=== PATIENT | female | born 1980 | race African-American/Black ===

== ENCOUNTER 2019-09-15 16:39 | Observation (INO) | payer SELFPAY ==
--- NOTE | ~2019-09-15 | CT_ITS ---
EXAMINATION: CT abdomen pelvis wo con DATE: 09/15/2019 19:03 INDICATION: Nausea and vomiting. TECHNIQUE: Computed tomography (CT) of the abdomen and pelvis was performed without intravenous contr ast. Automated exposure control and iterative reconstruction technique were employed. The dose-length product was 306.54 mGy-cm. COMPARISON: None. FINDINGS: The visualized portions of the lung bases demonstrate minimal atelectasis. No pleural effus ion. The heart size is normal. No pericardial effusion. The liver, gallbladder, spleen, pancreas, adr enal glands, and kidneys are normal. There is no urolithiasis. There are no dilated loops of bowel. T he appendix is normal. There is an umbilical hernia containing fat. The uterus is enlarged. There are 3.6 cm and 5.1 cm intramural uterine fibroids. There is a small volume of pelvic ascites, likely phy siologic. There is a small right inguinal hernia containing fat. There are no pathologically enlarged lymph nodes. There is thoracolumbar dextrocurvature. IMPRESSION: 1. Uterine fibroids. 2. Umbilical hernia containing fat. Small right inguinal hernia containing fat. Reviewed, dictated and finalized at location A.
[2019-09-15 16:43] VITALS: BP 118/60; PULSE 89; RESP 18; TEMP 37.7; O2SAT 100
--- NOTE | 2019-09-15 16:58 | ED.ABDPAIN ---
HPI - Abdominal Pain General Chief Complaint: Nausea/Vomiting/Diarrhea <Kishor Whipple PA-C - Last Filed: 09/15/19 20:33> Stated Complaint: nausea and vomiting <Kishor Whipple PA-C - Last Filed: 09/15/19 20:33> Time Seen by Provider: 09/15/19 16:41 <Kishor Whipple PA-C - Last Filed: 09/15/19 20:33> Source: patient <KAREN Vasquez Last Filed: 09/15/19 20:33> Mode of arrival: ambulatory <KAREN Vasquez Last Filed: 09/15/19 20:33> Limitations: no limitations <Kishor Whipple PA-C - Last Filed: 09/15/19 20:33> History of Present Illness HPI narrative: Patient is a 39-year-old female who presents to emergency department for evaluation of periumbilical abdominal pain is a sharp intermittent stabbing pain that has been present now for the last couple of days patient denies any fever vomiting diarrhea does note urinary frequency and urgency denies vaginal complaints or diarrhea or constipation <Kishor Whipple PA-C - Last Filed: 09/15/19 20:33> Related Data Allergies/Adverse Reactions: Allergies Allergy/AdvReac Type Severity Reaction Status Date / Time No Known Allergies Allergy Verified 09/15/19 17:59 <Kishor Whipple PA-C - Last Filed: 09/15/19 20:33> Review of Systems Review of Systems: All systems reviewed & are unremarkable except as noted in HPI and below <Kishor Whipple PA-C - Last Filed: 09/15/19 20:33> PMFSH Social History Social History: Social History Gender identity (if verbalized by the patient): Female <KAREN Vasquez Last Filed: 09/15/19 20:33> Exam Narrative: Exam Narrative: GENERAL: Well-appearing, well-nourished, and in no acute distress. HEAD: Normocephalic, atraumatic. EYES: PERRLA and EOMI. ENT: Nares clear, no rhinorrhea or epistaxis. Mucous membranes moist. CHEST: Clear to auscultation. No respiratory distress. No wheezes rales or rhonchi HEART: Regular rate and rhythm. No murmur heard. Normal peripheral pulses. ABDOMEN: Soft, periumbilical tenderness remainder of abdomen nontender no rebound or guarding, nondistended. Guaiac negative EXTREMITIES: Normal range of motion. No edema. SKIN: Warm, dry, no rash. NEURO: No focal deficits. Alert and oriented x3. PSYCH: Normal mood and affect. <Kishor Whipple PA-C - Last Filed: 09/15/19 20:33> Course Course Emergency Course: Patient in the room at this time in no distress aware of case findings treatment plan and diagnosis agreeing to stay in hospital aware of discussions with GI consult and hospitalist service <Kishor Whipple PA-C - Last Filed: 09/15/19 20:33> [employer]/PA Physician Supervision For this patient encounter, I reviewed the [employer] or PA documentation, treatment plan, and medical decision making; and I had [id number] time with this patient. <Giovanna Villalta MD - Last Filed: 09/15/19 19:46> Consultations Consultation #1: Discussed case with hospitalist and route relief driver who will accept the patient in consult on the patient in hospital <KAREN Vasquez Last Filed: 09/15/19 20:33> Date: 09/15/19 <KAREN Vasquez Last Filed: 09/15/19 20:33> Time: 20:31 <KAREN Vasquez Last Filed: 09/15/19 20:33> Vital Signs Vital signs: Vital Signs Temperature 99.9 F H 09/15/19 16:43 Pulse Rate 89 09/15/19 16:43 Respiratory Rate 18 09/15/19 16:43 Blood Pressure 118/60 09/15/19 16:43 Pulse Oximetry 100 09/15/19 16:43 Temperature 99.9 F H 09/15/19 16:43 Pulse Rate 76 09/15/19 19:00 Respiratory Rate 18 09/15/19 19:00 Blood Pressure 130/80 09/15/19 19:00 Pulse Oximetry 99 09/15/19 19:00 <KAREN Vasquez Last Filed: 09/15/19 20:33> Vital Signs Temperature 99.9 F H 09/15/19 16:43 Pulse Rate 89 09/15/19 16:43 Respiratory Rate 18 09/15/19 16:43 Blood Pressure 118/60 06
[2019-09-15] MEDS: SODIUM CHLORIDE 0.9% IV 1,000 ML 999 ML IV CONT ×2 (17:02→18:58)
[2019-09-15 17:03] LABS: Basophils Percent Auto 0.4 % (0.2-1.2); Eosinophils Absolute Auto 0.1 K/mm3 (0-0.3); Eosinophils Percent Auto 1.9 % (0-4.4); Hematocrit 24.9 % (37.0-47.0); Hemoglobin 7.3 g/dL (12.0-15.0); Immature Granulocyte Absolute 0.01 K/mm3 (0.00-0.031); Immature Granulocyte Percent A 0.2 % (0-0.5); Lymphocytes Absolute Auto 1.69 K/mm3 (0.9-3.2); Lymphocytes Percent Auto 31.8 % (18.3-44.2); Mean Corpuscular HGB Conc 29.3 g/dl (32-36); Mean Corpuscular Hemoglobin 19.9 pg (26-34); Mean Platelet Volume 9.7 fl (7.4-10.4); Monocytes Absolute Auto 0.3 K/mm3 (0.1-0.6); Monocytes Percent Auto 6.4 % (2.6-8.5); Neutrophils Absolute Auto 3.2 K/mm3 (1.3-6.7); Neutrophils Percent Auto 59.3 % (45.5-73.1); Platelet Count Result 291 k/mm3 (150-375); Red Blood Count 3.66 M/mm3 (4.2-5.4); Red Cell Distribution Width 19.9 % (11.5-14.5); White Blood Count 5.3 K/mm3 (4.5-10.0)
--- NOTE | 2019-09-15 17:04 | PC.NURSE ---
Pt unable to give urine sample at this time.
--- NOTE | 2019-09-15 17:05 | PC.NURSE ---
[facility] currently out of Pepcid. Called pharmacy and spoke with Jane. She states that she will have her tech come and fill Pepcid.
[2019-09-15 17:20] LABS: Hypochromasia 1+ (NORMAL); Platelet Estimate Adequate (Adequate)
[2019-09-15 17:21] LABS: Ovalocytes 1+ (NORMAL); Poikilocytosis 1+ (NORMAL); Target Cells 1+ (NORMAL)
[2019-09-15] MEDS: FAMOTIDINE 20 MG/2 ML VIAL IV PUSH ×2 (17:25→21:56)
[2019-09-15 17:38] LABS: Alanine Aminotransferase 14 U/L (4-35); Albumin Level 4.2 g/dL (3.5-5.1); Alkaline Phosphatase 67 U/L (38-126); Aspartate Amino Transferase 26 U/L (14-36); Bilirubin,Total 0.3 mg/dL (0.2-1.3); Blood Urea Nitrogen 7 mg/dL (7-17); Calcium 9.2 mg/dL (8.4-10.2); Carbon Dioxide 22 mmol/L (22-30); Chloride 109 mmol/L (98-107); Estimated CRCL calculation 62 ml/min; Estimated Glomerular Filt Rate > 60; Glucose 98 mg/dL (65-105); Lipase 85 U/L (23-300); Potassium 3.8 mmol/L (3.4-5.0); Sodium 137 mmol/L (137-145)
[2019-09-15] MEDS: PANTOPRAZOLE SODIUM IV 40 MG VIAL IV PUSH ×2 (18:08→21:56)
[2019-09-15 18:27] VITALS: BP 96/51; PULSE 60
[2019-09-15 18:28] VITALS: BP 105/57; PULSE 59
[2019-09-15 18:30] VITALS: BP 95/60; PULSE 63
[2019-09-15 18:46] LABS: Add Urine Microscopic? YES; Appearance Urine Cloudy (Clear); Bacteria Urine Trace /hpf; Bilirubin Urine Negative (Negative); Blood Urine Negative (Negative); Color Urine Yellow (Yellow); Glucose Urine UA Negative (Negative); Ketones Urine Negative (Negative); Leukocyte Esterase Ur Trace LEU/UL (Negative); Mucus Urine Rare /lpf; Nitrate Urine Negative (Negative); Protein Urine Negative (Negative); RBC Urine 0-2 /hpf (0-2); Specific Grav Ur 1.017 (1.001-1.035); Squamous Epithelial Cell Urine Many /hpf (Few); Urobilinogen Urine Negative mg/dL (<2.0)
[2019-09-15 19:00] VITALS: BP 130/80; PULSE 76; RESP 18; O2SAT 99
[2019-09-15 20:38] LABS: Reticulocyte Hemoglobin Conten 19.8 pg (28.2-35.7); Reticulocyte Percent 1.06 % (0.7-4.3); Reticulocytes Absolute 0.04 B/L (32.2-175.7)
[2019-09-15 20:54] LABS: Iron 28 ug/dL (37-170)
[2019-09-15 21:04] LABS: Percent Iron Saturation 6 % (20-50); Transferrin 383 mg/dL (206-381)
[2019-09-15 21:30] LABS: Ferritin 5.11 ng/mL (6.24-137)
--- NOTE | 2019-09-15 21:31 | ADMGEN ---
This patient, Juana Gomez, was admitted to 3 [facility] Surg Room 307-01. Patient/family oriented to hospital policies and general routines including ID bracelet, bed and alarms, visiting hours, pain management, procedures, bathroom and other care routines, personal items, smoking policy, room service/diet, and visiting hours. Valuables list has been completed. Information on how to activate the Rapid Response Team has been discussed. Patient/Family are encouraged to report perceived risks to care and to ask questions if they do not understand what they are told or what they should do.
[2019-09-15 21:36] VITALS: BP 102/62; PULSE 71; RESP 16; TEMP 36.8; O2SAT 100; BMI 25.0
[2019-09-15 21:42] LABS: Hematocrit 22.2 % (37.0-47.0)
[2019-09-15 21:45] LABS: Hemoglobin 6.3 g/dL (12.0-15.0)
[2019-09-15] MEDS: LACTATED RINGERS 1,000 ML 125 ML IV CONT (21:56)
[2019-09-15 22:02] LABS: Folic Acid 6.7 ng/mL (2.76->20)
[2019-09-15] MEDS: IRON SUCROSE COMPLEX 200 MG in SODIUM CHLORIDE 0.9% IV 50 ML 120 MG IVPB (22:32)
[2019-09-16] VITALS (11 sets, daily range): BP systolic 107–146; BP diastolic 64–86; PULSE 47–73; RESP 15–22; TEMP 36.6–37.1; O2SAT 100
[2019-09-16 03:43] LABS: Basophils Percent Auto 0.5 % (0.2-1.2); Eosinophils Absolute Auto 0.1 K/mm3 (0-0.3); Eosinophils Percent Auto 2.1 % (0-4.4); Hematocrit 25.9 % (37.0-47.0); Hemoglobin 7.6 g/dL (12.0-15.0); Immature Granulocyte Absolute 0.01 K/mm3 (0.00-0.031); Immature Granulocyte Percent A 0.3 % (0-0.5); Lymphocytes Absolute Auto 1.85 K/mm3 (0.9-3.2); Lymphocytes Percent Auto 48.1 % (18.3-44.2); Mean Corpuscular HGB Conc 29.3 g/dl (32-36); Mean Corpuscular Hemoglobin 20.9 pg (26-34); Mean Corpuscular Volume 71.2 fl (80-100); Mean Platelet Volume 9.1 fl (7.4-10.4); Monocytes Absolute Auto 0.2 K/mm3 (0.1-0.6); Monocytes Percent Auto 5.7 % (2.6-8.5); Neutrophils Absolute Auto 1.7 K/mm3 (1.3-6.7); Neutrophils Percent Auto 43.3 % (45.5-73.1); Platelet Count Result 189 k/mm3 (150-375); Red Blood Count 3.64 M/mm3 (4.2-5.4); Red Cell Distribution Width 21.8 % (11.5-14.5); White Blood Count 3.9 K/mm3 (4.5-10.0)
[2019-09-16 03:48] LABS: Blood Urea Nitrogen 8 mg/dL (7-17); Calcium 8.1 mg/dL (8.4-10.2); Carbon Dioxide 19 mmol/L (22-30); Chloride 114 mmol/L (98-107); Estimated CRCL calculation 73 ml/min; Estimated Glomerular Filt Rate > 60; Glucose 83 mg/dL (65-105); Potassium 3.7 mmol/L (3.4-5.0); Sodium 137 mmol/L (137-145)
[2019-09-16 04:26] LABS: Microcytosis 2+ (NORMAL); Platelet Estimate Adequate (Adequate)
[2019-09-16 04:27] LABS: Hypochromasia 1+ (NORMAL); Ovalocytes 1+ (NORMAL)
--- NOTE | 2019-09-16 05:11 | PM.IMHP ---
H&P: HPI History of Present Illness Chief complaint: Anemia, abdominal pain Narrative: Date and time of patient contact: 09/16/2019 at 3:45 a.m. Juana Gomez is a 39 year old female with a past medical history of bipolar disorder, anxiety, menorrhagia and prior gastric ulcer (around 2002) who presented to the ER due to nausea, vomiting, epigastric pain and anxiety. The patient reports that she has had a few days of epigastric left upper abdominal pain that is intermittent. When the pain occurs of last for 20 at 30 minutes. Pain is stabbing in nature and severe in intensity. She does not notice any correlation of the pain with food. She has had intermittent vomiting that is clear fluid. She has also had decreased appetite for the last couple of days. She also has a history of menorrhagia. She states that she has severe cramping with her menstrual cycle. Her menstrual cycles usually last between 5-7 days and have significant clots. She often times has to wear both a pad and a tampon or a menstrual cup and a pad and has to change her products frequently. She has had ovarian cyst in the past but denies a history of uterine fibroids. Imaging in the ER did demonstrate uterine fibroids measuring 3.6 cm and 5.1 cm. She also had a large uterus. She does report urinary urgency and frequency with frequent bladder leakage. She reports that when she changes her menstrual cup she does feel a bulge pushing on her vagina. She had 4 children via vaginal . She has not seen her psychology instructor regarding her urinary symptoms because she does not currently have insurance. She has had a long history of iron deficiency anemia and has been on oral supplementation in the past. She does not give a clear reason as to why she quit taking oral supplementation. She reports that she does not eat much red meat. Sounds like her diet is deficient in iron. she denies having taken any significant NSAID therapy. She denies any hematochezia or melena. She has had several days of looser stools but there brown in color. She denies any recent ill contacts, cough, congestion, fevers or chills. She reports a long history of anxiety. She states that she does not get lightheaded with position changes. She usually gets lightheaded when she starts tremoring and shaking with her anxiety attacks. She is quite concerned about intermittent paresthesias in her hands with sleeping and with other daily activities. She also has frequent cramping in her hands that is usually relieved with moving her hands. She is concerned that she has had a new skin pigment changes that she thinks are rash on her right side of her neck and on her right cheek. She reports that the skin color changes developed prior to wearing facemask during the COVID-19 epidemic. Review of Systems Review of Systems: Narrative: 12 systems were reviewed with pertinent positives and negatives per HPI. Except as documented in the HPI, all other systems were reviewed and are negative. [facility] Past Medical History Medical History (Updated 09/16/19 @ 05:43 by Astrid White DO) Anxiety Asthma Bipolar disorder Depression Iron deficiency anemia PTSD (post-traumatic stress disorder) Ulcer 2003 Surgical History Surgical History (Updated 09/16/19 @ 05:16 by Astrid White DO) History of tubal ligation 2005 Family History Family History (Updated 09/16/19 @ 05:17 by Astrid White DO) Mother Chronic obstructive pulmonary disease Daughter Diabetes mellitus Asthma Social History Social History (Updated 09/16/19 @ 05:19 by Astrid White DO) Smoking packs per day: 0.25 Smoking cigarettes per day: 5.0 Years smoked: 15 Smoking pack-years: 3.75 Smoking status: Current every day smoker Alcohol intake: current Alcohol use details: She drinks a glass of wine about once a month. Substance use: current Substance use type: marijuana Other substance usage details: She smo
[2019-09-16 06:38] LABS: IFOB Positive Control Positive; Immunochemical Fecal Occult Bl Negative (N)
--- NOTE | 2019-09-16 08:21 | WPDGICN ---
Assessment and Plan Assessment and plan (1) Iron deficiency anemia: Code(s): D50.9 - Iron deficiency anemia, unspecified Status: Acute Assessment and Plan: Iron deficiency anemia noted by laboratory testing. Rather profound anemia identified. Given her abdominal pain plan is to pursue EGD. A colonoscopy should also be performed after preparation. This can be performed as an outpatient. Patient does give a heavy history of heavy menstrual cycles. This likely contributes to ongoing iron deficiency. Agree with iron replacement. Stool is currently Hemoccult negative. Which supports menstrual blood loss contributing to her anemia. (2) Bipolar disorder: Code(s): F31.9 - Bipolar disorder, unspecified Status: Acute (3) Anxiety: Code(s): F41.9 - Anxiety disorder, unspecified Status: Acute (4) Abdominal pain: Qualifiers: Abdominal location: epigastric Qualified Code(s): R10.13 - Epigastric pain Code(s): R10.9 - Unspecified abdominal pain Status: Acute Assessment and Plan: Because of abdominal pain an EGD will be performed. Patient does have a distant history of gastric ulceration. With her profound microcytic anemia EGD will be performed today and colonoscopy advised subsequently when she can be prepared. Potentially this could be done as an outpatient. GI Consult Note Consult date/time: 09/16/19 08:21 HPI: Juana Gomez is a 39 year old female CC in evaluation at the request of the emergency room. Patient presented the emergency room because of epigastric pain nausea vomiting and anxiety. She has a history of recurrent abdominal pain that occurs intermittently. She denies any obvious signs of GI blood loss. She does have significant heavy menses. in the emergency room she was identified as having profound microcytic anemia. Patient reports having been anemic for quite some time. Previously was prescribed iron. She is stop this medication at some point. She denies any other source of blood loss. No obvious blood in her stools. No blood in her urine. No obvious bruising. She reports many years ago having had a gastric ulcer. Review of Systems Review of Systems: All systems reviewed & are unremarkable except as noted in HPI and below PMFSH Past Medical History Medical History Anxiety Asthma Bipolar disorder Depression Iron deficiency anemia PTSD (post-traumatic stress disorder) Ulcer 2004 Surgical History Surgical History History of tubal ligation 2005 Family History Family History Mother Chronic obstructive pulmonary disease Daughter Diabetes mellitus Asthma Social History Social History Smoking packs per day: 0.25 Smoking cigarettes per day: 5.0 Years smoked: 15 Smoking pack-years: 3.75 Smoking status: Current every day smoker Alcohol intake: current Alcohol use details: She drinks a glass of wine about once a month. Substance use: current Substance use type: marijuana Other substance usage details: She smoked marijuana daily. Last use: 09/15/2019 Living arrangements: with family Additional living arrangements comments: She has 4 children. Her oldest daughter is 25 her youngest daughter is 20. Her oldest son is 18 her youngest son is 16. 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 Gender identity (if verbalized by the patient): Female Spiritual care concerns: No Meds Home Medications and Allergies Home Medications Medication Instructions Recorded Confirmed Type No Home Medications 09/15/19 09/15/19 History Allergies Allergy/AdvReac Type Severity Reaction Status Date / Time No Known Allergie
[2019-09-16] MEDS: LACTATED RINGERS 1,000 ML 150 ML IV CONT ×2 (08:48→10:13)
--- NOTE | 2019-09-16 09:03 | WPDANESEPPF ---
Anes - Initial Pre Proc Eval Procedure: Operation Date: 09/16/19 09:30 Proposed Procedures p Esophagogastroduodenoscopy - Bandar Kimble MD Date/Time: 09/16/19 09:03 Surgeon: Joshua Land MD Pre Op Diagnosis: Anemia, abdominal pain Patient Data Age: 39 Gender: F Height: 5 ft 5 in Weight: 68.1 kg Last Vital Signs Temp 36.8 C 09/16/19 08:55 Pulse 48 L 09/16/19 08:55 Resp 16 09/16/19 08:55 BP 136/80 09/16/19 08:55 Pulse Ox 100 09/16/19 08:55 Allergies Allergy/AdvReac Type Severity Reaction Status Date / Time No Known Allergies Allergy Verified 09/15/19 17:59 Home Medications Medication Instructions Recorded Confirmed Type No Home Medications 09/15/19 09/15/19 History Laboratory Tests 09/15/19 09/15/19 09/15/19 16:57 16:57 16:57 WBC 5.3 K/mm3 K/mm3 (4.5-10.0) RBC 3.66 M/mm3 L M/mm3 (4.2-5.4) Hgb 7.3 g/dL L g/dL (12.0-15.0) Hct 24.9 % L % (37.0-47.0) MCV 68.0 fl L fl (80-100) MCH 19.9 pg L pg (26-34) MCHC 29.3 g/dl L g/dl (32-36) RDW 19.9 % H % (11.5-14.5) Plt Count 291 k/mm3 k/mm3 (150-375) MPV 9.7 fl fl (7.4-10.4) Immature Gran % (Auto) 0.2 % % (0-0.5) Neut % (Auto) 59.3 % % (45.5-73.1) Lymph % (Auto) 31.8 % % (18.3-44.2) [place] % (Auto) 6.4 % % (2.6-8.5) Eos % (Auto) 1.9 % % (0-4.4) Baso % (Auto) 0.4 % % (0.2-1.2) Lymph # (Auto) 1.69 K/mm3 K/mm3 (0.9-3.2) [place] # (Auto) 0.3 K/mm3 K/mm3 (0.1-0.6) Eos # (Auto) 0.1 K/mm3 K/mm3 (0-0.3) Baso # (Auto) 0.0 K/mm3 K/mm3 (0.0-0.1) Abs Immat Gran (auto) 0.01 K/mm3 K/mm3 (0.00-0.031) Absolute Neuts (auto) 3.2 K/mm3 K/mm3 (1.3-6.7) Absolute Nucleated RBC 0.0 K/mm3 K/mm3 (0.0-0.012) Nucleated RBC % 0.0 % % (0.0-0.2) Platelet Estimate Adequate (Adequate) Hypochromasia 1+ (NORMAL) Poikilocytosis 1+ (NORMAL) Microcytosis Target Cells 1+ (NORMAL) Ovalocytes 1+ (NORMAL) Absolute Retic 0.04 B/L L B/L (32.2-175.7) Percent Retic 1.06 % % (0.7-4.3) Immature Retic Fraction 23.0 % H % (3.0-15.9) Retic Hgb Content 19.8 pg L pg (28.2-35.7) Sodium Potassium Chloride Carbon Dioxide BUN Creatinine Estim Creat Clear Calc Estimated GFR Glucose Calcium Iron 28 ug/dL L ug/dL (37-170) TIBC 451 ug/dL ug/dL (261-462) % Saturation 6 % L % (20-50) Transferrin Ferritin 5.11 ng/mL L ng/mL (6.24-137) Total Bilirubin AST ALT Alkaline Phosphatase Total Protein Albumin Lipase Vitamin B12 Folate TSH (Reflex) 1.280 uIU/mL uIU/mL (0.465-4.68) Urine Color Urine Appearance Urine pH Ur Specific [place] Urine Protein Urine Glucose (UA) Urine Ketones Ur Blood (Man) Urine Nitrate Urine Bilirubin Urine Urobilinogen Leukocyte Esterase Rfl Urine RBC Urine WBC Ur Squamous Epith Cells Urine Bacteria Urine Mucus Stl Occult Blood (IFOB) Blood Type Antibody Screen Crossmatch 09/15/19 09/15/19 09/15/19 16:57 17:19 17:41 WBC RBC Hgb Hct MCV MCH MCHC RDW Plt Count MPV Immature Gran % (Auto)
[2019-09-16] MEDS: BENZOCAINE (*SP) 60 ML SPRAY CAN (HURRICAINE) 1 SPRAY MUCOUS MEM (10:05)
[2019-09-16 11:25] LABS: Hematocrit 26.7 % (37.0-47.0); Hemoglobin 7.8 g/dL (12.0-15.0)
--- NOTE | 2019-09-16 11:40 | PM.IMPN ---
Progress Note: A&P Assessment and Plan (1) Abdominal pain: Qualifiers: Abdominal location: epigastric Qualified Code(s): R10.13 - Epigastric pain Code(s): R10.9 - Unspecified abdominal pain Status: Acute (2) Iron deficiency anemia: Code(s): D50.9 - Iron deficiency anemia, unspecified Status: Acute (3) Urinary incontinence: Qualifiers: Urinary Incontinence type: stress incontinence Qualified Code(s): N39.3 - Stress incontinence (female) (male) Code(s): R32 - Unspecified urinary incontinence Status: Acute (4) Bipolar disorder: Code(s): F31.9 - Bipolar disorder, unspecified Status: Acute (5) Anxiety: Code(s): F41.9 - Anxiety disorder, unspecified Status: Acute (6) DVT prophylaxis: Code(s): Z29.9 - Encounter for prophylactic measures, unspecified Status: Acute Subjective Date/time seen: 09/16/19 11:40 Interval history: 39yo female with menorrhagia here for anemia and abdominal pain. Patient is having urine frequency and incontinence at times. She has had 4 vaginal deliveries in the past. No chronic back pain. She has sharp periumbilical pain that is not associated with food. She does have some nausea with it. Nothing seems to make it better or worse. As a perivaginal cyst that has been present for 2 years. Exam Narrative: Exam Narrative: AF 138/83 51 22 100% ra Gen - NARD Chest - CTA bilaterally, nml RR CV - RRR S1/S2 Abd - Soft, NT/ND, Positive BS - firm round cystic lesion left posterior labia majora (examined with RN in the room) Ext - No pedal edema Psych - Nml mood and affect Skin - Warm and dry Objective Data Vital Signs Vital Signs: Vital Signs - 24 hr 09/15/19 16:43 09/15/19 18:27 09/15/19 18:28 Temperature 99.9 F H Pulse Rate 89 60 59 L Respiratory Rate 18 Blood Pressure 118/60 96/51 L 105/57 L Pulse Oximetry 100 09/15/19 18:30 09/15/19 19:00 09/15/19 21:36 Temperature 98.2 F Pulse Rate 63 76 71 Respiratory Rate 18 16 Blood Pressure 95/60 L 130/80 102/62 Pulse Oximetry 99 100 09/16/19 00:06 09/16/19 00:22 09/16/19 01:22 Temperature 98.5 F 98.6 F 98.4 F Pulse Rate 64 69 63 Respiratory Rate 16 16 16 Blood Pressure 115/69 107/68 132/77 Pulse Oximetry 100 100 100 09/16/19 02:32 09/16/19 06:00 09/16/19 08:55 Temperature 97.8 F 97.8 F 98.2 F Pulse Rate 73 57 L 48 L Respiratory Rate 16 16 16 Blood Pressure 121/71 122/64 136/80 Pulse Oximetry 100 100 100 09/16/19 10:16 09/16/19 10:26 09/16/19 10:30 Temperature 98.5 F Pulse Rate 70 47 L 52 L Respiratory Rate 18 15 18 Blood Pressure 141/86 H 146/84 H 116/68 Pulse Oximetry 100 100 100 09/16/19 10:36 Temperature Pulse Rate 51 L Respiratory Rate 22 H Blood Pressure 138/83 Pulse Oximetry 100 Intake/Output Intake/Output: Intake & Output 09/13/19 09/14/19 09/15/19 09/16/19 23:59 23:59 23:59 23:59 Intake Total 2160 1543 Balance 2160 1543 Meds/Results Medications: Active Medications Generic Name Dose Route Start Last Admin Trade Name Freq PRN Reason Stop Dose Admin Ascorbic Acid 250 mg 09/16/19 09:00 Vitamin C PO BID FATEMEH Ferrous Sulfate 324 mg 09/16/19 08:00 Ferrous Sulfate PO BIDWM FATEMEH Acetaminophen 1,000 mg in 100 mls @ 400 mls/hr 09/15/19 20:33 Ofirmev 1,000 Mg Ivpb IVPB 09/16/19 20:34 Q6H PRN Mild Pain (1-3) or Fever Lactated Ringer's 1,000 mls @ 125 mls/hr 09/15/19 20:35 09/16/19 08:48 Lr - Lactated Ringers Iv IV CONT 150 mls/hr .Q8H FATEMEH Administration Ondansetron HCl 4 mg 09/15/19 20:33 Zofran Inj IV PUSH Q4H PRN Nausea Pantoprazole Sodium 40 mg 09/15/19 21:00 09/15/19 21:56 Protonix Iv IV PUSH 40 mg Q12HR FATEMEH Administration Radiology Results: ITS Impressions Abdomen/Pelvis CT 09/15/19 19:03 IMPRESSION: 1. Uterine fibroids. 2. Umbilical hernia containing fat. Small right inguin
--- NOTE | 2019-09-16 18:44 | PM.DS ---
DS: Admitting Diagnosis Admitting Diagnosis Admitting Diagnosis: Iron deficiency anemia, unspecified DS: Discharge Diagnosis Discharge Diagnosis (1) Abdominal pain: Qualifiers: Abdominal location: epigastric Qualified Code(s): R10.13 - Epigastric pain Code(s): R10.9 - Unspecified abdominal pain Status: Acute Assessment and Plan: No clear etiology. CT abdomen pelvis showed no obvious findings. EGD was normal. LFTs and lipase were normal. Consider acid reflux or possibly IBS. Patient was started on diet which she tolerated. She feels comfortable with discharge. (2) Iron deficiency anemia: Qualifiers: Iron deficiency anemia type: chronic blood loss Qualified Code(s): D50.0 - Iron deficiency anemia secondary to blood loss (chronic) Code(s): D50.9 - Iron deficiency anemia, unspecified Status: Acute Assessment and Plan: Patient's hemoglobin dropped to 6.3. She received 1 unit packed red blood cell. Hemoglobin climbed to the 7 range remains stable. Iron deficiency by blood work. Stool guaiac was negative. It was felt her anemia was related to menorrhagia. We have arrange for outpatient OBGYN appointment. (3) Urinary incontinence: Qualifiers: Urinary Incontinence type: stress incontinence Qualified Code(s): N39.3 - Stress incontinence (female) (male) Code(s): R32 - Unspecified urinary incontinence Status: Acute Assessment and Plan: Suspect this is related to the uterine fibroids and possibly prolapse. As above. (4) Bipolar disorder: Qualifiers: Active/Remission status: remission status unspecified Qualified Code(s): F31.9 - Bipolar disorder, unspecified Code(s): F31.9 - Bipolar disorder, unspecified Status: Acute Assessment and Plan: Mood stable during hospital course. She is not on any medications for this. (5) Anxiety: Code(s): F41.9 - Anxiety disorder, unspecified Status: Acute Assessment and Plan: Not on any medications at home for anxiety. Plan is for patient to arrange for primary care appointment. DS: Summary Hospital Course Reason for hospitalization: 39 yo female here for abdominial pain and found to be anemic. Please see H&P for details. Hospital Course: As above. Time Spent with Patient Time attestation: Total time spent providing and/or coordinating discharge services:34 minutes Time spent: Greater than 30 minutes Specific discharge activities: Multiple visits the patient to discuss discharge planning Exam Narrative: Exam Narrative: AF 138/83 51 22 100% ra Gen - NARD Chest - CTA bilaterally, nml RR CV - RRR S1/S2 Abd - Soft, NT/ND, Positive BS - firm round cystic lesion left posterior labia majora (examined with RN in the room) Ext - No pedal edema Psych - Nml mood and affect Skin - Warm and dry DS: Data Data Completed and Pending Labs on day of discharge: Labs from last 24 hours 09/16/19 09/16/19 09/16/19 11:15 06:15 03:27 WBC RBC Hgb 7.8 L Hct 26.7 L MCV MCH MCHC RDW Plt Count MPV Immature Gran % (Auto) Neut % (Auto) Lymph % (Auto) [place] % (Auto) Eos % (Auto) Baso % (Auto) Lymph # (Auto) [place] # (Auto) Eos # (Auto) Baso # (Auto) Abs Immat Gran (auto) Absolute Neuts (auto) Absolute Nucleated RBC Nucleated RBC % Platelet Estimate Hypochromasia Microcytosis Ovalocytes Absolute Retic Percent Retic Immature Retic Fraction Retic Hgb Content Sodium 137 Potassium 3.7 Chloride 114 H Carbon Dioxide 19 L BUN 8 Creatinine 0.80 Estim Creat Clear Calc 73 Estimated GFR > 60 Glucose 83 Calcium 8.1 L Iron TIBC % Saturation Transferrin Ferritin Vitamin B12 Folate TSH (Reflex) Urine Color Urine Appearance Urine pH Ur Specific [place] Urin
[2019-09-16] MEDS: FERROUS SULFATE 324 MG TABLET PO (19:01)
[2019-09-16] MEDS: ASCORBIC ACID 250 MG TABLET PO (19:01)
--- NOTE | 2019-10-21 07:08 | PM.OBPNVD ---
OB - PN: Subj Subjective Date/time seen: 10/21/19 07:08 Patient d/c prior to being seen. OB - PN: Obj Data Labs CBC & Chem 7: 09/16/19 11:15 09/16/19 03:27 OB - PN A/P Time Spent With Patient Time: Total time spent is greater than 50% in coordination of care (as documented) at patient's floor/unit and/or counseling patient:
== END 2019-09-16 19:21 | disposition home or self-care (01) ==
LOC: ANHED 20:42 → ANH3MEDSUR 20:56
PROVIDERS: Emergency Medicine Emergency Medical Services; Internal Medicine Gastroenterology; Admitting Provider Internal Medicine; Emergency Provider Emergency Medicine; Visit Provider Internal Medicine
PROC: 0DJ08ZZ Inspection of Upper Intestinal Tract, Via Natural or Artificial Opening Endoscopic (ICD-10-PCS; CPT 43235; principal; 2019-09-16 09:30)
DX: R10.13 Epigastric pain (principal); D50.9 Iron deficiency anemia, unspecified; N39.3 Stress incontinence (female) (male); F31.9 Bipolar disorder, unspecified; F41.9 Anxiety disorder, unspecified; F17.210 Nicotine dependence, cigarettes, uncomplicated; Z98.51 Tubal ligation status; Z87.11 Personal history of peptic ulcer disease
CPT/HCPCS: 43235; 36415; 36430; 74176; 80048; 80053; 81001; 81025; 82274; 82607; 82728; 82746; 83540; 83550; 83690; 84443; 84466; 85014; 85018; 85025; 85046; 86850; 86900; 86901; 86923; 87081; 96360; 96361; 96365; 96367; 96375; 96376; 99285; A9270; C9113; G0378; G0379; J0131; J1756; J2001; J2704; J7030; J7120; P9016

== ENCOUNTER 2019-11-02 19:48 | Emergency (ER) | payer MEDICAID, SELFPAY ==
[2019-11-02 20:03] VITALS: BP 111/58; PULSE 82; RESP 20; TEMP 36.8; O2SAT 100
--- NOTE | 2019-11-02 21:48 | ED.GENADULT ---
HPI - General Adult General Chief complaint: Wound/Laceration Stated complaint: wound in groin Time Seen by Provider: 11/02/19 20:35 Source: patient History of Present Illness HPI narrative: 39 years old -[place] female complaining of a large cyst like lesion aT the left labia externally for the last 2 years. last night got busted and start leaking dark discharge. Patient denies any fever, chills, nausea, vomiting. Related Data Allergies Allergy/AdvReac Type Severity Reaction Status Date / Time No Known Allergies Allergy Verified 11/02/19 20:05 Review of Systems Review of Systems: Narrative: CONSTITUTIONAL: Denies fever, chills, or sweats. EYES: Denies visual changes, redness, or discharge. ENT: Denies rhinorrhea, congestion, sore throat, or otalgia. CARDIOVASCULAR: Denies chest pain, palpitations, or edema. RESPIRATORY: Denies cough or dyspnea. GASTROINTESTINAL: Denies abdominal pain, nausea, vomiting, or diarrhea. GENITOURINARY: Denies dysuria or hematuria. SKIN: Denies rash or itching. MUSCULOSKELETAL: Denies back pain, joint pain, or myalgia. NEUROLOGIC: Denies headache, numbness, or weakness. PSYCHIATRIC: Denies anxiety or depression. [facility] Past Medical History Medical History Anxiety Asthma Bipolar disorder Depression Iron deficiency anemia PTSD (post-traumatic stress disorder) Ulcer 2003 Surgical History Surgical History History of tubal ligation 2005 Family History Family History Mother Chronic obstructive pulmonary disease Daughter Diabetes mellitus Asthma Social History Social History Smoking packs per day: 0.25 Smoking cigarettes per day: 5.0 Years smoked: 15 Smoking pack-years: 3.75 Smoking status: Current every day smoker Alcohol intake: current Substance use: current Substance use type: marijuana Other substance usage details: She smoked marijuana daily. Last use: 09/15/2019 Additional living arrangements comments: She has 4 children. Her oldest daughter is 25 her youngest daughter is 20. Her oldest son is 18 her youngest son is 16. 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 Gender identity (if verbalized by the patient): Female Spiritual care concerns: No Exam Narrative: Exam Narrative: General appearance: Well-developed, well-nourished Skin: Normal color Head: Normocephalic, nontraumatic Eyes: Clear conjunctiva ENT: Oropharynx normal, ears normal, nose normal Neck: Supple, nontender Chest and respiratory: Airway patent, no respiratory distress, no accessory muscle use Heart: Regular rate/rhythm Abdomen: Soft, nontender, no organomegaly, quiet bowel sounds, Vascular: Normal peripheral pulses, normal capillary refill. Musculoskeletal: Normal range of motion, nontender back Neurologic: Alert and oriented ?3, OUTGOING INSPECTOR is normal as tested, no gross motor deficit : External Female Exam: other (1 x 1 cm cyst at the left labia externally, leaking bloody purulent dischar) Course Course Emergency Course: Improving Vital Signs Vital signs: Vital Signs Temperature 36.8 C 11/02/19 20:03 Pulse Rate 82 11/02/19 20:03 Respiratory Rate 20 11/02/19 20:03 Blood Pressure 111/58 L 11/02/19 20:03 Pulse Oximetry 100 11/02/19 20:03 Temperature 36.8 C 11/02/19 20:03 Pulse Rate 82 11/02/19 20:03 Respiratory Rate 20 11/02/19 20:03 Blood Pressure 111/58 L 11/02/19 20:03 Pulse Oximetry 100
[2019-11-02 21:50] VITALS: BP 115/85; PULSE 76; RESP 19; TEMP 36.3; O2SAT 100
[2019-11-02 22:24] VITALS: BP 107/74; PULSE 80; RESP 19; TEMP 36.6; O2SAT 100
== END 2019-11-02 22:30 | disposition home or self-care (01) ==
PROVIDERS: Emergency Provider Emergency Medicine
DX: N76.4 Abscess of vulva (principal); D50.9 Iron deficiency anemia, unspecified; F17.210 Nicotine dependence, cigarettes, uncomplicated
CPT/HCPCS: 10061; 56405; 99283

== ENCOUNTER 2020-01-13 17:15 | Emergency (ER) | payer MEDICAID, SELFPAY ==
--- NOTE | ~2020-01-13 | CT_ITS ---
EXAMINATION: CT abdomen pelvis w con EXAM DATE: 01/13/2020 19:03 INDICATION: Abdominal pain, right lower quadrant pain, nausea. TECHNIQUE: Spiral CT of the abdomen and pelvis was performed following intravenous injection of 100 m L Omnipaque 350. Axial, coronal and sagittal images were reviewed. The dose-length product (DLP) fo r this examination was 361.21 mGy-cm. The exposure was tailored according to patient size (auto mA e xposure control), and iterative reconstruction (ASIR) was used as additional dose reduction technique . There is no prior study for comparison. FINDINGS: Small to moderate-sized umbilical fat-containing hernia. Small right femoral fat-containing hernia. The liver, spleen, adrenal glands and pancreas are unremarkable. Gallbladder is unremarkabl e. No biliary obstruction. Portal and splenic veins are patent. Kidneys enhance symmetrically. Th ere is no hydronephrosis. Multiple large fibroids. There is serpiginous fluid-filled tubular-like structure in the right adnexa l region, suspicious for hydrosalpinx, or could be pyosalpinx. Small free pelvic fluid. Normal append ix was indicated on both axial and coronal sequences. Multiple cystlike regions along the perineum, l ikely Pascual's duct cysts. The bladder is unremarkable. There is no retroperitoneal or pelvic lymph adenopathy. The stomach and small bowel are unremarkable. There is expected amount of colonic stool. No free i ntraperitoneal gas. The heart is normal in size. There are no pericardial or pleural effusions. T he lung bases are unremarkable. There are no osteoblastic or osteolytic lesions identified. IMPRESSION: 1. Right adnexal tubular fluid-filled structure suspicious for hydro or pyosalpinx. 2. Peroneal cystlike regions likely Pascual's duct cysts. 3. Small to moderate umbilical and small right femoral fat-containing hernias. 4. Fibroids. 5. Normal appendix. Reviewed, dictated and finalized at location A. IMPRESSION: 1. Right adnexal tubular fluid-filled structure suspicious for hydro or pyosal pinx. 2. Peroneal cystlike regions likely Pascual's duct cysts. 3. Small to moderate umbilical and small right femoral fat-containing hernias. 4. Fibroids. 5. Normal appendix.
[2020-01-13 17:46] VITALS: BP 108/57; PULSE 72; RESP 19; TEMP 37.1; O2SAT 98
[2020-01-13 17:59] LABS: Basophils Percent Auto 0.2 % (0.2-1.2); Eosinophils Percent Auto 0.5 % (0-4.4); Hematocrit 27.9 % (37.0-47.0); Hemoglobin 8.9 g/dL (12.0-15.0); Immature Granulocyte Absolute 0.02 K/mm3 (0.00-0.031); Immature Granulocyte Percent A 0.2 % (0-0.5); Lymphocytes Percent Auto 17.8 % (18.3-44.2); Mean Corpuscular HGB Conc 31.9 g/dl (32-36); Mean Corpuscular Hemoglobin 27.2 pg (26-34); Mean Corpuscular Volume 85.3 fl (80-100); Mean Platelet Volume 9.8 fl (7.4-10.4); Monocytes Absolute Auto 0.6 K/mm3 (0.1-0.6); Monocytes Percent Auto 7.2 % (2.6-8.5); Neutrophils Absolute Auto 6.2 K/mm3 (1.3-6.7); Neutrophils Percent Auto 74.1 % (45.5-73.1); Platelet Count Result 327 k/mm3 (150-375); Red Blood Count 3.27 M/mm3 (4.2-5.4); White Blood Count 8.4 K/mm3 (4.5-10.0)
[2020-01-13 18:02] LABS: Alanine Aminotransferase 15 U/L (4-35); Alkaline Phosphatase 80 U/L (38-126); Anion Gap 5 mmol/L (8-16); Aspartate Amino Transferase 19 U/L (14-36); Bilirubin,Total 0.4 mg/dL (0.2-1.3); Blood Urea Nitrogen 6 mg/dL (7-17); Calcium 8.8 mg/dL (8.4-10.2); Carbon Dioxide 28 mmol/L (22-30); Chloride 104 mmol/L (98-107); Estimated CRCL calculation 73 ml/min; Estimated Glomerular Filt Rate > 60; Glucose 98 mg/dL (65-105); Lipase 39 U/L (23-300); Potassium 3.5 mmol/L (3.4-5.0); Sodium 137 mmol/L (137-145)
[2020-01-13] MEDS: KETOROLAC 30 MG/ML VIAL (*BKC) IV PUSH (18:23)
[2020-01-13] MEDS: SODIUM CHLORIDE 0.9% IV 1,000 ML 999 ML IV CONT (18:23)
[2020-01-13 19:00] LABS: Add Urine Microscopic? YES; Appearance Urine Clear (Clear); Bacteria Urine Trace /hpf; Bilirubin Urine Negative (Negative); Blood Urine Negative (Negative); Color Urine Yellow (Yellow); Glucose Urine UA Negative (Negative); Ketones Urine Negative (Negative); Leukocyte Esterase Ur Negative LEU/UL (Negative); Mucus Urine Rare /lpf; Nitrate Urine Negative (Negative); Protein Urine Negative (Negative); Specific Grav Ur 1.017 (1.001-1.035); Squamous Epithelial Cell Urine Many /hpf (Few); WBC Urine 0-3 /hpf
--- NOTE | 2020-01-13 19:04 | ED.GENADULT ---
HPI - General Adult General Chief complaint: Abdominal Pain Stated complaint: R abd pain Time Seen by Provider: 01/13/20 17:54 Source: patient History of Present Illness HPI narrative: Patient is a 39 y/o female complaining of right lower abdominal pain radiating to right back starting early today. She describes her pain as sharp and rates it as 10/10. There is no alleviating or exacerbating factor. She has no fever, vomiting, diarrhea or dysuria. Related Data Allergies Allergy/AdvReac Type Severity Reaction Status Date / Time No Known Allergies Allergy Verified 01/13/20 17:53 Review of Systems Constitutional: Constitutional: Denies chills, Denies fever(s), Denies headache(s) and Denies weakness Eyes: Eyes: Denies blurry vision ENT: Denies headache(s) and Denies neck pain Cardiovascular: Cardiovascular: Denies chest pain and Denies dyspnea Respiratory: Respiratory: Denies cough and Denies dyspnea Gastrointestinal: Gastrointestinal: Reports abdominal pain, Denies diarrhea, Denies nausea and Denies vomiting Genitourinary: Genitourinary: Denies hematuria and Denies dysuria Musculoskeletal: Musculoskeletal: Denies back pain and Denies neck pain Neurologic: Denies headache(s) and Denies weakness [facility] Past Medical History Medical History (Updated 01/13/20 @ 19:48 by Giovanna Villalta MD) Anxiety Asthma Bipolar disorder Depression Iron deficiency anemia PTSD (post-traumatic stress disorder) Ulcer 2003 Surgical History Surgical History History of tubal ligation 2005 Family History Family History Mother Chronic obstructive pulmonary disease Daughter Diabetes mellitus Asthma Social History Social History Smoking packs per day: 0.25 Smoking cigarettes per day: 5.0 Years smoked: 15 Smoking pack-years: 3.75 Smoking status: Current every day smoker Alcohol intake: current Substance use: current Substance use type: marijuana Other substance usage details: She smoked marijuana daily. Last use: 09/15/2019 Additional living arrangements comments: She has 4 children. Her oldest daughter is 25 her youngest daughter is 20. Her oldest son is 18 her youngest son is 16. 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 Gender identity (if verbalized by the patient): Female Spiritual care concerns: No Exam Const: General: no acute distress and well developed Orientation/consciousness: oriented to person, oriented to place, oriented to time and patient oriented x3 HENMT: Head: normocephalic Ears: external ears normal General nose exam: Normal external nose present Eyes: General: appearance normal, both eyes and all related structures Conjunctivae: conjunctivae normal Neck: Neck: normal visual inspection and full ROM Chest: Chest palpation & inspection: normal inspection of the chest and no tenderness Resp: Effort & Inspection: normal respiratory effort Auscultation: clear to auscultation bilaterally Cardio: Rate: regular rate Rhythm: regular rhythm GI: GI Palp: Yes abdominal tenderness (right lower abdomen) and Yes Soft to palpation Skin: General skin exam: normal color and turgor normal Neuro: General: oriented to person, oriented to place, oriented to time and patient oriented x3 Cognition (Neuro): normal cognition Extrem: General: normal to inspection, full ROM and no pedal edema Psych: Appearance: grossly normal Mental Status: mental status grossly normal Affect: normal affect Course Reevaluation(s) Reevaluation #1: Offered patient admission for observation and urgent Wet Pour Mixer consult, but patient declined. She wants to be discharged. Date: 01/13/20 Time: 19:30 Consultations Consultation #1: Discussed with Dr. Genao ([facility]aster Recovery Manager), who recommend discharge and ermias
[2020-01-13 20:06] VITALS: BP 109/64; PULSE 62; RESP 16; TEMP 36.8; O2SAT 99
== END 2020-01-13 20:07 | disposition home or self-care (01) ==
PROVIDERS: Emergency Provider Emergency Medicine
DX: N70.11 Chronic salpingitis (principal); K41.90 Unilateral femoral hernia, without obstruction or gangrene, not specified as recurrent; D50.9 Iron deficiency anemia, unspecified; J45.909 Unspecified asthma, uncomplicated
CPT/HCPCS: 36415; 74177; 80053; 81001; 81025; 83690; 85025; 96361; 96374; 99284; J1885; J7030; Q9967